=== PATIENT | male | born 1945 | race Caucasian/White ===

== ENCOUNTER 2020-08-21 12:32 | Emergency (ER) | payer OTHER, SELFPAY ==
[2020-08-21] VITALS (9 sets, daily range): BP systolic 126–138; BP diastolic 72–85; PULSE 56–78; RESP 16–20; TEMP 36.8; O2SAT 87–97; BMI 29.8
--- NOTE | 2020-08-21 12:43 | XR_ITS ---
WS: [id number] Portable AP upright chest, 08/21/2020 Clinical Data: dyspnea/cough Comparison: None. Findings: No nodules, masses or effusions are seen. The heart is normal. The pulmonary vascularity is not increased. No pneumonia or pneumothorax is seen. The aortic arch and descending aorta show tortu osity. XR/XR chest 1V portable [id number] Impression: Atherosclerosis.
--- NOTE | 2020-08-21 12:57 | ECG_ITS ---
[facility] Test Date: 2020-08-21 Pat Name: Christian Watson Department: Room: Gender: Male Inker: : 1945 Requested By: Dmitri Freedman Order Number: [id number] Juan Ramon MD: Ej Morrison M.D. Measurements Intervals [place] Rate: 68 P: 53 [place]: 143 QRS: 72 QRSD: 102 T: 68 QT: 411 QTc: 440 Interpretive Statements SINUS RHYTHM MODERATE ST DEPRESSION [0.05+ mV ST DEPRESSION] Compared to ECG 08/21/2020 12:39:11 ST (T wave) deviation now present Sinus bradycardia no longer present Electronically Signed On 08-22-2020 18:45:29 CDT by Ej Morrison M.D. [id number]
--- NOTE | 2020-08-21 12:59 | ED_ITS ---
HPI - SOB/Dyspnea General: Chief Complaint: Shortness of Breath/Dyspnea Stated Complaint: SOB Time Seen by Provider: 08/21/20 12:34 History of Present Illness: HPI Narrative: 75 yo male presents emergency room with increasing shortness of breath of the last couple of days. Began approximately 4 days ago he has slight increase in volume of cough dry throat some sinus congestion is a history of COPD. He has not had any fever. He has previously been vaccinated for Covid he never had an actual case of Covid that he is aware of. MD elicited complaint: shortness of breath and cough Pertinent past history: COPD Onset (ago): day(s) (4) Timing: intermittent Severity: moderate Exacerbating factors: exertion and coughing Relieving factors: rest and bronchodilators Known history of: COPD Associated symptoms: Reports chest congestion and cough; Deny abdominal pain, chest pain, diaphoresis, dizziness, extremity pain, fever(s), hemoptysis, lightheadedness, myalgias, nausea, orthopnea, palpitations, paresthesias, polydipsia, polyuria, rash, syncope or vomiting Treatment prior to arrival: bronchodilator Review of Systems Const: Denies: fever(s) or diaphoresis ENMT: Denies: throat pain, ear or mastoid pain, nasal discharge or nasal congestion Card: Denies: chest pain, palpitations, lightheadedness, syncope or orthopnea Resp: Reports: chest congestion; Denies: hemoptysis GI: Denies: abdominal pain, nausea or vomiting : Denies: flank pain, dysuria, urinary frequency or urinary urgency Musc: Denies: extremity pain Skin/Breast: Denies: rash or pruritus Neuro: Denies: dizziness Endo: Denies: polyuria or polydipsia PFS ED PFSH: Medical History (Updated 08/21/20 @ 15:40 by Dmitri Saldana DO) COPD (chronic obstructive pulmonary disease) Physical Exam Const: COMMON NORMALS: no acute distress GENERAL APPEARANCE: cooperative and comfortable ORIENTATION/CONSCIOUSNESS: Yes awake, Yes oriented to person, Yes oriented to place and Yes oriented to time HENMT: COMMON NORMALS: normocephalic, atraumatic and hearing grossly normal bilaterally HEAD & SCALP: normocephalic and atraumatic Neck/C-Spine: COMMON NORMALS: no JVD Resp: AUSCULTATION: wheezes Cardio: COMMON NORMALS: no JVD, regular rate, regular rhythm and No murmurs present (Cardio) RATE: regular rate RHYTHM: regular rhythm GI: COMMON NORMALS: Soft to palpation and No hepatosplenomegaly present AUSCULTATION: Yes normoactive bowel sounds PALPATION: Yes Soft to palpation, No Tenderness to palpation present (GI), No Guarding due to palpation present (GI) and Yes No hepatosplenomegaly present Extremity: COMMON NORMALS: normal to inspection, capillary refill normal, no clubbing, cyanosis or edema, no calf tenderness and no pedal edema Neuro: SENSORIUM/ORIENTATION: Yes oriented to person, Yes oriented to place and Yes oriented to time Skin: COMMON NORMALS: no rashes or lesions noted GENERAL SKIN EXAM: no rashes or lesions noted Course Vital Signs: Vital signs: Vital Signs Temperature 98.2 F 08/21/20 12:41 Pulse Rate 78 08/21/20 15:24 Respiratory Rate 16 08/21/20 15:24 Blood Pressure 138/82 08/21/20 16:00 Pulse Oximetry 96 08/21/20 16:00 MDM - SOB/Dyspnea MDM Narrative: Medical decision making narrative: Patient now requiring oxygen with ambulation. Chest x-ray is unremarkable white count is normal were going to discharge him home on Spiriva continue albuterol as needed follow-up with his primary care doctor within the next week and will start him oxygen at 2 L/min continuously Case management is [facility] to get [facility] through. Lab Data: Labs: Lab Results 08/21/20 08/21/20 08/21/20 Range/Units 13:00 13:00 13:00 WBC 5.5 (4.0-10.0) 10^3/ uL RBC 5.08 (4.1-5.3) 10^6/u L Hgb 15.9 (11.7-16.6) g/dL Hct 47.2 (42.0-52.0) % MCV 92.9 (80-94) fL MCH 31.3 (28.0-34.0) pg MCHC 33.7 (30.0-36.0) g/dL RDW 11.9 L (12.1-15.1) % Plt Count 207 (130-400) 10^3/c mm MPV 9.5 (7.4-10.4) fL Neut % (Auto) 53.4 % Lymph % (Auto) 31.1 % Ripley % (Auto) 12.8 % Eos % (Auto) 2.0 % Baso % (Auto) 0.5 % Neut # (Auto) 2.92 (1.8-7.7) 10^3/u L Lymph # (Auto) 1.7 (0.8-4.8) 10^3/u L Ripley # (Auto) 0.7 (0.2-0.9) 10^3/u L Eos # (Auto) 0.1 (0.0-0.8) 10^3/u L Baso # (Auto) 0.0 (0.0-0.1) 10^3/u L Nucleated RBC % (a uto) 0 % Nucleated RBCs # 0.0 /100WBC Specimen Type Arterial Sample Site Radial, right ABG pH 7.44 (7.35-7.45) ABG pCO2 37.6 (35-45) mmHg ABG pO2 62.0 L (80.0-100.0) mmH g ABG HCO3 25.7 (22-26) mmol/L ABG O2 Saturation 92.3 ABG Base Excess 1.7 (-2.0-2.0) mmol/ L [place]ano Test Pos A-a O2 Gradient 5.3 (5-10) mmHg Hematocrit 49.3 (42-52) % Hgb O2 Saturation 91.5 L (95-100) % Carboxyhemoglobin 0.2 L (0.4-20.1) %THgb Methemoglobin 0.6 (0.4-1.5) % Total Hemoglobin 16.1 (14-18) g/dL Sodium 141.0 138 (131-143) mmol/L Potassium 4.3 4.2 (3.5-5.0) mmol/L Glucose 107.0 96 (70-115) mg/dL Ionized Calcium 1.2 (1.1-1.4) mmol/L O2 Delivery Device Room air FiO2 21.0 % Denture Laboratory Technician ID Monro Chloride 101 (98-107) mmol/L Carbon Dioxide 28 (22-29) mmol/L Anion Gap 13.2 (5-19) BUN 11 (8-23) mg/dL Creatinine 0.9 (0.7-1.2) mg/dL GFR Calculation Not Reportable Calculated Osmolal ity 285 (285-295) mOsm/k g Calcium 9.4 (8.5-10.5) mg/dL Troponin T Baselin e (0-15) ng/L Troponin T 120 Min poarch (0-15) ng/L Delta Troponin T (0-10) ABS# Urine Color (Yellow) Urine Appearance (CLEAR) Urine pH (5-7) Ur Specific Gravit y (1.005-1.030) Urine Protein (Negative) Urine Glucose (UA) (Normal) Urine Ketones (Negative) Urine Blood (Negative) Urine Nitrate (Negative) Urine Bilirubin (Negative) Urine Urobilinogen (Negative) mg/dL Ur Leukocyte [place] a[place] (Negative) 08/21/20 08/21/20 08/21/20 Range/Units 13:00 13:29 15:09 WBC (4.0-10.0) 10^3/ uL RBC (4.1-5.3) 10^6/u L Hgb (11.7-16.6) g/dL Hct (42.0-52.0) % MCV (80-94) fL MCH (28.0-34.0) pg MCHC (30.0-36.0) g/dL RDW (12.1-15.1) % Plt Count (130-400) 10^3/c mm MPV (7.4-10.4) fL Neut % (Auto) % Lymph % (Auto) % Ripley % (Auto) % Eos % (Auto) % Baso % (Auto) % Neut # (Auto) (1.8-7.7) 10^3/u L Lymph # (Auto) (0.8-4.8) 10^3/u L Ripley # (Auto) (0.2-0.9) 10^3/u L Eos # (Auto) (0.0-0.8) 10^3/u L Baso # (Auto) (0.0-0.1) 10^3/u L Nucleated RBC % (a uto) % Nucleated RBCs # /100WBC Specimen Type Sample Site ABG pH (7.35-7.45) ABG pCO2 (35-45) mmHg ABG pO2 (80.0-100.0) mmH g ABG HCO3 (22-26) mmol/L ABG O2 Saturation ABG Base Excess (-2.0-2.0) mmol/ L [place]ano Test A-a O2 Gradient (5-10) mmHg Hematocrit (42-52) % Hgb O2 Saturation (95-100) % Carboxyhemoglobin (0.4-20.1) %THgb Methemoglobin (0.4-1.5) % Total Hemoglobin (14-18) g/dL Sodium (131-143) mmol/L Potassium (3.5-5.0) mmol/L Glucose (70-115) mg/dL Ionized Calcium (1.1-1.4) mmol/L O2 Delivery Device FiO2 % Denture Laboratory Technician ID Chloride (98-107) mmol/L Carbon Dioxide (22-29) mmol/L Anion Gap (5-19) BUN (8-23) mg/dL Creatinine (0.7-1.2) mg/dL GFR Calculation Calculated Osmolal ity (285-295) mOsm/k g Calcium (8.5-10.5) mg/dL Troponin T Baselin e 9 (0-15) ng/L Troponin T 120 Min poarch 7.26 (0-15) ng/L Delta Troponin T -1.74 L (0-10) ABS# Urine Color Straw (Yellow) Urine Appearance Clear (CLEAR) Urine pH 6.5 (5-7) Ur Specific Gravit y 1.010 (1.005-1.030) Urine Protein Neg (Negative) Urine Glucose (UA) Norm (Normal) Urine Ketones Negative (Negative) Urine Blood Neg (Negative) Urine Nitrate Negative (Negative) Urine Bilirubin Neg (Negative) Urine Urobilinogen Norm (Negative) mg/dL Ur Leukocyte [place] Negative (Negative) Discharge Plan Discharge Patient Disposition: Home Clinical Impression: COPD (chronic obstructive pulmonary disease) Condition: Stable Prescriptions: New Spiriva Respimat 1.25 mcg/actuation mist 2 inh inhalation DAILY Qty: 4 RF: 0 No Action pravastatin 40 mg Tablet 40 mg PO QPM RF: 0 Aspir-81 81 mg Tablet,Delayed Release (Dr/Ec) 81 mg PO QAM RF: 0 Protonix 20 mg Tablet,Delayed Release (Dr/Ec) 20 mg PO QAM RF: 0 hydrochlorothiazide 25 mg Tablet 12.5 mg PO QAM RF: 0 Flonase 50 mcg/actuation [place],Suspension 2 spray INTRANASAL BEDTIME RF: 0 metoprolol tartrate 25 mg Tablet 12.5 mg PO BID RF: 0 Vitamin D3 50 mcg (2,000 unit) Tablet 50 mcg PO QAM RF: 0 Spiriva Respimat 2.5 mcg/actuation Mist 2 puff INHALATION QAM RF: 0 Discharge Orders: Discharge ED (Routine); Ordered 08/21/20 Ordered By: Dmitri Saldana Other Ambulatory Orders: DME: Oxygen (Order) Location: None Selected Ordered By: Dmitri Saldana Patient Instructions: Opioid Safety Activity Restrictions/Additional Instructions: Follow up with your PCP within the next week. Coding Level of Care Code ED Coat Check Attendant for Chas Fwd Exam Comprehensive
[2020-08-21] MEDS: ipratropium-albuterol 3 mL Neb INHALATION (13:10)
[2020-08-21 13:14] LABS: ABG PCO2 37.6 mmHg (35-45); ABG PH Result 7.44 (7.35-7.45); Alveolar-Arterial Oxygen Gradi 5.3 mmHg (5-10); Arterial Blood Gas Hematocrit 49.3 % (42-52); Base Excess ABG 1.7 mmol/L (-2.0-2.0); Basophils % 0.5 %; Blood Gas Allen Test Pos; Blood Gas Operator Identificat MONRO; Blood Gas Sample Site Radial, right; Blood Gas Sample Type Arterial; Carboxyhemoglobin 0.2 %THgb (0.4-20.1); Eosinophils # 0.1 10^3/uL (0.0-0.8); HCO3 ABG 25.7 mmol/L (22-26); HGB O2 Sat 91.5 % (95-100); Hematocrit 47.2 % (42.0-52.0); Hemoglobin 15.9 g/dL (11.7-16.6); Ionized Calcium Level - ABG 1.2 mmol/L (1.1-1.4); Lymphocytes # 1.7 10^3/uL (0.8-4.8); Lymphocytes % 31.1 %; Mean Corpuscular HGB Conc 33.7 g/dL (30.0-36.0); Mean Corpuscular Hemoglobin 31.3 pg (28.0-34.0); Mean Corpuscular Volume 92.9 fL (80-94); Mean Platelet Volume 9.5 fL (7.4-10.4); Methemoglobin 0.6 % (0.4-1.5); Monocytes # 0.7 10^3/uL (0.2-0.9); Monocytes % 12.8 %; Neutrophils # 2.92 10^3/uL (1.8-7.7); Neutrophils % 53.4 %; Nucleated Red Blood Cells % 0 %; Oxygen Device ROOM AIR; Oxygen Saturation ABG 92.3; Platelet Count 207 10^3/cmm (130-400); Potassium Level - ABG 4.3 mmol/L (3.5-5.0); Red Blood Count 5.08 10^6/uL (4.1-5.3); Red Cell Distribution Width 11.9 % (12.1-15.1); Total Hemoglobin 16.1 g/dL (14-18); White Blood Count 5.5 10^3/uL (4.0-10.0)
[2020-08-21 13:30] LABS: Troponin(5th) Baseline 9 ng/L (0-15)
[2020-08-21 13:31] LABS: Blood Urea Nitrogen 11 mg/dL (8-23); Calcium 9.4 mg/dL (8.5-10.5); Carbon Dioxide 28 mmol/L (22-29); Chloride 101 mmol/L (98-107); Glucose 96 mg/dL (65-115); Osmolality Calculated 285 mOsm/kg (285-295); Sodium 138 mmol/L (136-145)
[2020-08-21 13:39] LABS: Add Urine Microscopic? NO; Charge for UA Resulting for Rev
[2020-08-21 13:47] LABS: Urine Appearance Clear (CLEAR); Urine Color Straw (Yellow)
[2020-08-21 13:48] LABS: Bilirubin Urine Neg (Negative); Blood Urine Neg (Negative); Glucose Urine UA Norm (Normal); Ketones Urine Negative (Negative); Leukocyte Esterase Urine Negative (Negative); Nitrate Urine Negative (Negative); Protein Urine Neg (Negative); Urobilinogen Urine Norm (Negative); pH Urine 6.5 (5-7)
[2020-08-21 13:58] LABS: Anion Gap 13.2 (5-19); Potassium 4.2 mmol/L (3.5-5.1)
--- NOTE | 2020-08-21 14:57 | ECG_ITS ---
[facility] Test Date: 2020-08-21 Pat Name: Christian Watson Department: Room: Gender: Male Associate Professor Of Pathology: : 1945 Requested By: Dmitri Freedman Order Number: [id number] Juan Ramon MD: Ej Morrison M.D. Measurements Intervals [place] Rate: 57 P: 12 [place]: 162 QRS: -11 QRSD: 105 T: 44 QT: 426 QTc: 417 Interpretive Statements SINUS BRADYCARDIA No previous ECG available for comparison Electronically Signed On 08-22-2020 19:01:49 CDT by Ej Morrison M.D. [id number]
--- NOTE | 2020-08-21 15:46 | DCPLANNER ---
java manager was asked to help arrange home oxygen for patient, he has [facility]. java manager contacted Bill Alston with [facility], sent him patients information over secure email.
[2020-08-21 15:57] LABS: Troponin 5 2HR 7.26 ng/L (0-15)
[2020-08-21 15:59] LABS: Troponin 5 2HR Delta -1.74 ABS# (0-10)
== END 2020-08-21 19:08 | disposition home or self-care (01) ==
PROVIDERS: Emergency Provider Family Medicine
DX: J44.9 Chronic obstructive pulmonary disease, unspecified (principal); Z79.82 Long term (current) use of aspirin
CPT/HCPCS: 36600; 71045; 80048; 80051; 81003; 82330; 82805; 84484; 85025; 93005; 94640; 96374; 99284; J2930

== ENCOUNTER → 2020-10-31 10:43 | Outpatient (BNVA) | payer OTHER, SELFPAY | PROVIDERS: Referring Provider Family Medicine; Visit Provider Podiatrist Foot & Ankle Surgery | DX: M79.673 Pain in unspecified foot (principal) | CPT/HCPCS: 73630 ==

== ENCOUNTER 2020-12-06 12:06 | Outpatient (CLI) | payer OTHER, MEDICARE, SELFPAY ==
--- NOTE | 2020-12-06 12:11 | US_ITS ---
WS: [id number] ULTRASOUND SOFT TISSUES RIGHT foot HISTORY: Evaluate for Montgomery's neuroma right foot COMPARISON: None available. TECHNIQUE: 2-D and color Doppler imaging is submitted. No change in echogenicity or hypoechoic nodule between the metatarsal heads. No mass identified. No f luid at the joint spaces. US/US soft tissue/extremity [id number] IMPRESSION: Negative ultrasound RIGHT foot. No Montgomery's neuroma identified.
== END 2020-12-06 12:07 | disposition home or self-care (01) ==
PROVIDERS: PCP Family Medicine; Visit Provider Podiatrist Foot & Ankle Surgery
DX: M77.41 Metatarsalgia, right foot (principal)
CPT/HCPCS: 76882

== ENCOUNTER 2021-07-03 06:13 | Day surgery (SDC) | payer OTHER, SELFPAY ==
[2021-07-01 09:02] VITALS: BMI 29.8
[2021-07-03 06:33] VITALS: BP 141/94; PULSE 97; RESP 18; TEMP 36.4; O2SAT 94
[2021-07-03] MEDS: sodium chloride 0.9% 1,000 ML 30 ML IV (06:39)
--- NOTE | 2021-07-03 06:47 | P.HP_ITS ---
Same Day Surgery H&P Indication for Procedure/HPI DATE OF PROCEDURE: July 03, 2021 CHIEF COMPLAINT/INDICATIONFOR SURGICAL PROCEDURE: History of colon polyps PREOP DIAGNOSIS: History of colon polyps PLANNED PROCEDURE: Operation Date: 07/03/21 07:30 Proposed Procedures p Colonoscopy 36578(Not Applicable) - Andrew Mejia MD 04/21/2021 This is a pleasant 75 years old gentleman comes today escorted by his and he reports that he had a colonoscopy back in 2009 that was within normal limits.? He had about 20 years ago he had a colonoscopy that showed polyps.? Patient denies bleeding per rectum or history of colon cancer and he is referred to my practice for repeat colonoscopy. 07/03/2021 Patient comes today for surveillance colonoscopy ROS All systems have been reviewed negative except as per the above or per problem list Medications/Allergies* Home Medications Medication Instructions Recorded Confirmed Type aspirin 81 mg tablet,delayed 81 mg PO QAM 08/21/20 07/01/21 History release cholecalciferol (vitamin D3) 50 50 mcg PO QAM 08/21/20 07/03/21 History mcg (2,000 unit) tablet (Vitamin D3) fluticasone propionate 50 2 spray INTRANASAL BEDTIME 08/21/20 07/03/21 History mcg/actuation nasal spray,suspension hydrochlorothiazide 25 mg tablet 12.5 mg PO QAM 08/21/20 07/03/21 History metoprolol tartrate 25 mg tablet 12.5 mg PO DAILY 08/21/20 07/03/21 History pantoprazole 20 mg tablet,delayed 20 mg PO QAM 08/21/20 07/03/21 History release (Protonix) pravastatin 40 mg tablet 40 mg PO QPM 08/21/20 07/03/21 History tiotropium bromide 2.5 2 puff INHALATION QAM 08/21/20 07/03/21 History mcg/actuation mist for inhalation (Spiriva Respimat) Allergies/Adverse Reactions Allergy/AdvReac Type Severity Reaction Status Date / Time ibuprofen Allergy LESTERY-Nikie Verified 07/03/21 06:48 r Current Medications: Generic Name Dose Route Start Last Admin Trade Name Freq PRN Reason Stop Dose Admin Sodium Chloride 1,000 mls @ 30 mls/hr 07/03/21 06:30 07/03/21 06:39 Sodium Chloride 0.9% IV 07/04/21 06:29 30 mls/hr .Q24H PRASHANT Administration Pertinent History/Comorbid Conditions* Medical History (Updated 10/31/20 @ 14:10 by Aj Colbert DPM) COPD (chronic obstructive pulmonary disease) Surgical History (Updated 04/21/21 @ 15:51 by Adnrew Mejia MD) History of colonoscopy with polypectomy 2009 Social History Smoking and tobacco status: never smoked History of recent travel: No Pertinent Exam Findings alert, oriented x 3, regular rate & rhythm and procedure specific exam findings (Abdominal examination nontender nondistended soft) Recommendations Surgery/Procedure today (Surveillance colonoscopy) Coding Level of Care Code Acute Customer Advocacy Manager for Chas Sunshine
--- NOTE | 2021-07-03 07:01 | ANES.PREANE2 ---
Pre-Anesthetic Assessment Height/Weight: Height 1.83 m Weight 99.79 kg Temp Pulse Resp BP Pulse Ox 97.5 F L 97 18 141/94 94 07/03/21 06:33 07/03/21 06:33 07/03/21 06:33 07/03/21 06:33 07/03/21 06:33 Preop Diagnosis: History of colon polyps Operation Date: 07/03/21 07:30 Proposed Procedures p Colonoscopy [id number](Not Applicable) - Andrew Mejia MD Familial anesthetic complications: none Was Beta Cristina taken within 24 hours: Yes Was Clonidine taken within 24 hours: N/A Last intake: Intake Last Liquid Date 07/02/21 Last Liquid Time 22:30 Last Solid Date 07/01/21 Last Solid Time 18:00 Last Intake: 22:30 Social No alcohol and No tobacco Exam alert, oriented x 3, clear to auscultation bilaterally and regular rate & rhythm Airway Submandibular: within normal limits Cervical ROM: within normal limits Mallampati: Class II Dentition: false Pulmonary Chronic Obstructive Pulmonary Disease, Exertional Dyspnea and Shortness of Breath CV/HEM Hypertension and Murmur (leaky valve) None reported Hepatic None reported GI Gastroesophageal Reflux Disease Metabolic Diabetes Mellitus (diet controlled) Musc/skel Lower Back Pain Neuropsych None reported Anesthetic Plan ASA status: 2 Anesthesia: MAC Risk of > 500 ml blood loss (7ml/kg in children): No Medications/Allergies Home Medications Medication Instructions Recorded Confirmed Last Taken Type aspirin 81 mg tablet,delayed 81 mg PO QAM 08/21/20 07/01/21 07/02/21 History release cholecalciferol (vitamin D3) 50 50 mcg PO QAM 08/21/20 07/03/21 07/02/21 History mcg (2,000 unit) tablet (Vitamin D3) fluticasone propionate 50 2 spray INTRANASAL BEDTIME 08/21/20 07/03/21 07/02/21 History mcg/actuation nasal spray,suspension hydrochlorothiazide 25 mg tablet 12.5 mg PO QAM 08/21/20 07/03/21 07/02/21 History metoprolol tartrate 25 mg tablet 12.5 mg PO DAILY 08/21/20 07/03/21 07/02/21 History pantoprazole 20 mg tablet,delayed 20 mg PO QAM 08/21/20 07/03/21 07/02/21 History release (Protonix) pravastatin 40 mg tablet 40 mg PO QPM 08/21/20 07/03/21 07/02/21 History tiotropium bromide 1.25 2 inh INHALATION DAILY #4 g 08/21/20 07/03/21 07/02/21 Rx mcg/actuation mist for inhalation (Spiriva Respimat) tiotropium bromide 2.5 2 puff INHALATION QAM 08/21/20 07/03/21 07/02/21 History mcg/actuation mist for inhalation (Spiriva Respimat) Allergies Allergy/AdvReac Type Severity Reaction Status Date / Time ibuprofen Allergy ALGY-Bliste Verified 07/03/21 06:48 r Current Medications Generic Name Dose Route Start Last Admin Trade Name Freq PRN Reason Stop Dose Admin Sodium Chloride 1,000 mls @ 30 mls/hr 07/03/21 06:30 07/03/21 06:39 Sodium Chloride 0.9% IV 07/04/21 06:29 30 mls/hr .Q24H PRASHANT Administration PFSH Anesthesia Medical History COPD (chronic obstructive pulmonary disease) Surgical History History of colonoscopy with polypectomy 2009 Social History Smoking and tobacco status: never smoked History of recent travel: No Data Anesthesia Cardiac Studies: No Data to Display
[2021-07-03 07:57] VITALS: BP 120/70; PULSE 68; RESP 16; TEMP 37.2; O2SAT 92
[2021-07-03 08:06] VITALS: BP 130/91; PULSE 78; RESP 18; O2SAT 91
--- NOTE | 2021-07-03 13:13 | ANE.PACU2 ---
Inpatient post-anesthesia follow up: Airway intact: Yes Vital signs: Temperature 98.9 F Pulse Rate 78 Respiratory Rate 18 Blood Pressure 130/91 Pulse Oximetry 91 Oxygen Delivery Me thod Room Air Oxygen Flow Rate 3 Fraction of Inspir ed Oxygen Hydration adequate: Yes Nausea and vomiting: Yes Pain level: 2 Mental status: Baseline
== END 2021-07-03 08:24 | disposition home or self-care (01) ==
PROVIDERS: PCP Family Medicine; Visit Provider Surgery
PROC: 0DJD8ZZ Inspection of Lower Intestinal Tract, Via Natural or Artificial Opening Endoscopic (ICD-10-PCS; CPT 45378; principal; 2021-07-03 07:30)
DX: Z12.11 Encounter for screening for malignant neoplasm of colon (principal); Z86.010 Personal history of colon polyps; K63.5 Polyp of colon; K57.30 Diverticulosis of large intestine without perforation or abscess without bleeding; J44.9 Chronic obstructive pulmonary disease, unspecified; I10 Essential (primary) hypertension; K21.9 Gastro-esophageal reflux disease without esophagitis; E11.9 Type 2 diabetes mellitus without complications; Z79.82 Long term (current) use of aspirin
CPT/HCPCS: 45385; 88305; J2704; J7030

== ENCOUNTER → 2021-07-24 13:09 | Outpatient (BNVA) | payer OTHER, SELFPAY | PROVIDERS: PCP Family Medicine; Visit Provider Surgery | DX: Z09 Encounter for follow-up examination after completed treatment for conditions other than malignant neoplasm (principal); K57.31 Diverticulosis of large intestine without perforation or abscess with bleeding | CPT/HCPCS: 99213 ==

== ENCOUNTER → 2022-01-07 14:43 | Outpatient (BNVA) | payer OTHER, SELFPAY | PROVIDERS: PCP Family Medicine; Visit Provider Specialist | DX: M25.511 Pain in right shoulder (principal) | CPT/HCPCS: 73030; 99203 ==

== ENCOUNTER 2022-02-06 09:14 | Outpatient (CLI) | payer OTHER, SELFPAY ==
--- NOTE | 2022-02-06 09:30 | MR_ITS ---
WS: [id number] MRI RIGHT SHOULDER HISTORY: Chronic shoulder pain for 2 years. No injury. COMPARISON: 01/07/2022 TECHNIQUE: Multiplanar sequences of the shoulder joint are submitted. Moderate AC joint arthritis. Joint space narrowing with hypertrophic osteophytes at the distal clavic le and acromion. Osteophyte measures 5 mm extends towards the myotendinous insertion of the supraspin atus with mild mass effect. There is additional edema within the distal clavicle and increased T2 sig nal through the AC ligament. Small broad-based osteophyte along the distal undersurface of the acromi on with mild subacromial impingement. No os acromion. Normal position of the biceps tendon. Mild narrowing of the glenohumeral joint with mild diffuse loss of cartilage involving the humeral he ad and the glenoid. No effusion in the axillary recess. No significant atrophy or edema within the ro tator cuff muscles. Abnormal signal in the distal supraspinatus tendon. There is a very small amount of fluid in the distal tendon consistent with an insertion site tear. There is a additional increased T2 signal with thickening involving the bursal surface of the distal supraspinatus. There is no retr action. No full-thickness tear. No definite labral tears are identified. MR/MR shoulder RT wo con* [id number] IMPRESSION: 1. Moderate AC joint arthritis with 5 mm osteophyte encroachment upon the myot endinous insertion supraspinatus muscle. 2. Insertion site tear with intrasubstance degeneration involving the supraspi natus tendon. This is only a very small tear at the footprint. There is adjacen t tendinopathy along the bursal surface of the supraspinatus. 3. Mild loss of cartilage and joint space involving the glenoid and humeral he ad.
== END 2022-02-06 09:15 | disposition home or self-care (01) ==
LOC: RAD 09:15
PROVIDERS: PCP Family Medicine; Visit Provider Specialist
DX: M13.811 Other specified arthritis, right shoulder (principal); M75.101 Unspecified rotator cuff tear or rupture of right shoulder, not specified as traumatic; M25.511 Pain in right shoulder
CPT/HCPCS: 73221

== ENCOUNTER → 2022-02-18 13:28 | Outpatient (BNVA) | payer OTHER, SELFPAY | PROVIDERS: PCP Family Medicine; Visit Provider Specialist | DX: M25.511 Pain in right shoulder (principal) | CPT/HCPCS: 20610; 99213 ==

== ENCOUNTER → 2022-07-02 11:17 | Outpatient (BNVA) | payer OTHER, SELFPAY | PROVIDERS: PCP Family Medicine; Visit Provider Specialist | DX: M75.81 Other shoulder lesions, right shoulder (principal); Z71.89 Other specified counseling | CPT/HCPCS: 20610; J1100; J2795; J3301 ==

== ENCOUNTER → 2022-10-01 10:37 | Outpatient (BNVA) | payer OTHER, SELFPAY | PROVIDERS: PCP Family Medicine; Visit Provider Specialist | DX: M75.81 Other shoulder lesions, right shoulder (principal); M75.111 Incomplete rotator cuff tear or rupture of right shoulder, not specified as traumatic | CPT/HCPCS: 20610; J1100; J2795; J3301 ==

== ENCOUNTER 2022-12-13 09:12 | Emergency (ER) | payer OTHER, SELFPAY ==
[2022-12-13 09:16] VITALS: BP 151/82; PULSE 58; RESP 15; TEMP 36.4; O2SAT 98; BMI 29.1
[2022-12-13 09:28] VITALS: BP 151/82; PULSE 86; RESP 16; O2SAT 95
--- NOTE | 2022-12-13 09:31 | ED_ITS ---
HPI - Skin/Abscess/Foreign Bdy General: Chief complaint: Skin/Abscess/Foreign Body Stated complaint: burn on both legs Time Seen by Provider: 12/13/22 09:15 Source: patient History of Present Illness: 77-year-old male was using a cleaning product yesterday he got so on his knees use kneeling down and the chemical soaked into his knees bilaterally began washing it off and then went to the house to take his clothing off and wash it out further uncomfortable and painful today. Has dry eschar in place burn is worse on the right knee than the left. He is not sure of his last tetanus shot Onset (ago): day(s) (1) Tetanus up to date: yes Location: LLE and RLE Severity: moderate Quality: sharp Pain Consistency: intermittent Relieving factors: none Exacerbating factors: none Associated symptoms: Deny chills or fever(s) Review of Systems Const: Denies: fever(s) or chills PFSH ED PFSH: Medical History Colon polyp COPD (chronic obstructive pulmonary disease) History of carotid body tumor removal Surgical History History of colonoscopy with polypectomy 2010 History of hemorrhoidectomy Social History Smoking and tobacco status: former smoker Physical Exam Const: COMMON NORMALS: no acute distress GENERAL APPEARANCE: cooperative and comfortable ORIENTATION/CONSCIOUSNESS: Yes awake Skin: OTHER: Localized irritation bilaterally at the knees he has a second-degree burn across the patella and the inferior side of the patella on the right knee much less involvement on the left but still some areas consistent with where the patient described use kneeling down got the chemical on his jeans. No proximal lymphangitic spread no active bleeding or sign of infection at this time Course Vital Signs: Vital signs: Vital Signs Temperature 97.6 F 12/13/22 09:16 Pulse Rate 59 L 12/13/22 09:41 Respiratory Rate 16 12/13/22 09:41 Blood Pressure 140/94 12/13/22 09:41 Pulse Oximetry 94 12/13/22 09:41 Oxygen Delivery Me thod Room Air 12/13/22 09:28 MDM - Skin/Abscess/Foreign Bdy Medicial Decision Making Patient is already washed the wounds appropriately. These clark occurred yesterday there is really not a lot of intervention to do at this point other than wound care apply topical antibiotic ointment 3 times daily. Wound care instructions given follow-up with primary care Tylenol for pain. Tetanus updated. No radiology studies performed this visit Discharge Plan Discharge Patient Disposition: Home Clinical Impression: Partial thickness chemical burn of left knee, Partial thickness chemical burn of right knee Condition: Stable Prescriptions: New mupirocin 2 % ointment 1 applic topical TID Qty: 50 0RF No Action pravastatin 40 mg Tablet 40 mg PO QPM pantoprazole [Protonix] 20 mg Tablet,Delayed Release (Dr/Ec) 20 mg PO QAM hydrochlorothiazide 25 mg Tablet 12.5 mg PO QAM fluticasone propionate 50 mcg/actuation [place],Suspension 2 spray INTRANASAL BEDTIME metoprolol tartrate 25 mg Tablet 12.5 mg PO DAILY cholecalciferol (vitamin D3) [Vitamin D3] 50 mcg (2,000 unit) Tablet 50 mcg PO QAM Spiriva Respimat 2.5 mcg/actuation Mist 2 puff INHALATION QAM Discharge Orders: Discharge ED (Routine); Ordered 12/13/22 Ordered By: Dmitri Saldana Referrals: Celsa Osorio MD [Primary Care Provider] - Discharge Diet: Usual diet Discharge Activity: Increase activity as tolerated Patient Instructions: Chemical Clark, Opioid Safety, Pain Management Coding Level of Care Code ED Landscaping Specialist for Chas Sunshine
[2022-12-13] MEDS: tetanus-dipt-pertussis 0.5 mL SDV IM (09:35)
[2022-12-13 09:41] VITALS: BP 140/94; PULSE 59; RESP 16; O2SAT 94
== END 2022-12-13 09:42 | disposition home or self-care (01) ==
PROVIDERS: Emergency Provider Family Medicine; PCP Family Medicine
DX: T65.891A Toxic effect of other specified substances, accidental (unintentional), initial encounter (principal); T24.421A Corrosion of unspecified degree of right knee, initial encounter; T24.422A Corrosion of unspecified degree of left knee, initial encounter; J44.9 Chronic obstructive pulmonary disease, unspecified; Z87.891 Personal history of nicotine dependence; Z23 Encounter for immunization; Y93.E9 Activity, other interior property and clothing maintenance
CPT/HCPCS: 90715; 99283

== ENCOUNTER → 2022-12-25 09:04 | Outpatient (BNVA) | payer OTHER, SELFPAY | PROVIDERS: PCP Family Medicine; Visit Provider Nurse Practitioner Family | DX: C44.329 Squamous cell carcinoma of skin of other parts of face (principal); L82.1 Other seborrheic keratosis; C44.722 Squamous cell carcinoma of skin of right lower limb, including hip; D22.5 Melanocytic nevi of trunk; L57.8 Other skin changes due to chronic exposure to nonionizing radiation; L81.4 Other melanin hyperpigmentation; T30.4 Corrosion of unspecified body region, unspecified degree; L57.0 Actinic keratosis; L82.0 Inflamed seborrheic keratosis | CPT/HCPCS: 11102; 17004; 17110; 99213 ==

== ENCOUNTER → 2023-01-06 13:13 | Outpatient (BNVA) | payer OTHER, SELFPAY | PROVIDERS: PCP Family Medicine; Visit Provider Nurse Practitioner Family | DX: T24.7 Corrosion of third degree of lower limb, except ankle and foot (principal); T55.1X1A Toxic effect of detergents, accidental (unintentional), initial encounter; Y93.G1 Activity, food preparation and clean up; L57.0 Actinic keratosis; L82.1 Other seborrheic keratosis; D22.5 Melanocytic nevi of trunk; L57.8 Other skin changes due to chronic exposure to nonionizing radiation; L81.4 Other melanin hyperpigmentation; L82.0 Inflamed seborrheic keratosis; X58.XXXA Exposure to other specified factors, initial encounter | CPT/HCPCS: 97597; 99213 ==

== ENCOUNTER → 2023-01-07 08:49 | Outpatient (BNVA) | payer OTHER, SELFPAY | PROVIDERS: PCP Family Medicine; Visit Provider Specialist | DX: M75.81 Other shoulder lesions, right shoulder; M75.111 Incomplete rotator cuff tear or rupture of right shoulder, not specified as traumatic; Z71.89 Other specified counseling | CPT/HCPCS: 20610; J1100; J2795; J3301 ==

== ENCOUNTER → 2023-01-12 08:14 | Outpatient (BNVA) | payer OTHER, SELFPAY | PROVIDERS: PCP Family Medicine; Visit Provider Dermatology | DX: C44.329 Squamous cell carcinoma of skin of other parts of face (principal) | CPT/HCPCS: 12053; 17000; 17311 ==

== ENCOUNTER → 2023-01-28 14:06 | Outpatient (BNVA) | payer OTHER, SELFPAY | PROVIDERS: PCP Family Medicine; Visit Provider Nurse Practitioner Family | DX: T24.421A Corrosion of unspecified degree of right knee, initial encounter (principal); T49.2X1A Poisoning by local astringents and local detergents, accidental (unintentional), initial encounter; L82.1 Other seborrheic keratosis; D22.5 Melanocytic nevi of trunk; L57.8 Other skin changes due to chronic exposure to nonionizing radiation | CPT/HCPCS: 99213 ==

== ENCOUNTER → 2023-03-30 10:04 | Outpatient (BNVA) | payer OTHER, SELFPAY | PROVIDERS: PCP Family Medicine; Visit Provider Nurse Practitioner Family | DX: T30.4 Corrosion of unspecified body region, unspecified degree (principal); L82.1 Other seborrheic keratosis; D22.5 Melanocytic nevi of trunk; L57.8 Other skin changes due to chronic exposure to nonionizing radiation; L81.4 Other melanin hyperpigmentation; Z85.828 Personal history of other malignant neoplasm of skin; L57.0 Actinic keratosis; D48.5 Neoplasm of uncertain behavior of skin; X58.XXXA Exposure to other specified factors, initial encounter | CPT/HCPCS: 11102; 17000; 99213 ==

== ENCOUNTER → 2023-04-15 07:52 | Outpatient (BNVA) | payer OTHER, SELFPAY | PROVIDERS: PCP Family Medicine; Visit Provider Dermatology | DX: D04.39 Carcinoma in situ of skin of other parts of face (principal) | CPT/HCPCS: 12052; 17311 ==

== ENCOUNTER → 2023-04-22 11:02 | Outpatient (BNVA) | payer OTHER, SELFPAY | PROVIDERS: PCP Family Medicine; Visit Provider Specialist | DX: M75.81 Other shoulder lesions, right shoulder; M75.111 Incomplete rotator cuff tear or rupture of right shoulder, not specified as traumatic | CPT/HCPCS: 20610; J1100; J2795; J3301 ==

== ENCOUNTER → 2023-07-20 13:05 | Outpatient (BNVA) | payer OTHER, SELFPAY | PROVIDERS: PCP Family Medicine; Visit Provider Dermatology | DX: D48.5 Neoplasm of uncertain behavior of skin (principal); L57.0 Actinic keratosis; S10.86XA Insect bite of other specified part of neck, initial encounter; X58.XXXA Exposure to other specified factors, initial encounter; L82.1 Other seborrheic keratosis; L81.4 Other melanin hyperpigmentation; Z85.828 Personal history of other malignant neoplasm of skin | CPT/HCPCS: 11102; 17000; 99213 ==

== ENCOUNTER → 2023-08-13 09:57 | Outpatient (BNVA) | payer OTHER, SELFPAY | PROVIDERS: PCP Family Medicine; Visit Provider Specialist | DX: M25.511 Pain in right shoulder (principal); Z71.89 Other specified counseling | CPT/HCPCS: 20610; J1100; J2795; J3301 ==

== ENCOUNTER → 2023-10-11 10:04 | Outpatient (BNVA) | payer OTHER, SELFPAY | PROVIDERS: PCP Family Medicine; Visit Provider Specialist | DX: M75.111 Incomplete rotator cuff tear or rupture of right shoulder, not specified as traumatic (principal); M75.81 Other shoulder lesions, right shoulder; M19.011 Primary osteoarthritis, right shoulder | CPT/HCPCS: 73030; 99214 ==

== ENCOUNTER → 2023-11-10 15:06 | Outpatient (BNVA) | payer OTHER, SELFPAY | PROVIDERS: PCP Family Medicine; Visit Provider Dermatology | DX: L57.0 Actinic keratosis (principal); L81.4 Other melanin hyperpigmentation | CPT/HCPCS: 17004; 17110; 99213 ==

== ENCOUNTER 2023-11-18 08:32 | Outpatient (CLI) | payer OTHER, SELFPAY ==
--- NOTE | 2023-11-18 08:45 | MR_ITS ---
WS: [id number] MRI RIGHT SHOULDER HISTORY: right shoulder pain COMPARISON: 02/06/2022 TECHNIQUE: Multiplanar sequences of the shoulder joint are submitted. Moderate AC joint arthritis. Narrowing of the AC joint with large osteophytes encroaching towards the supraspinatus tendon. Increased soft tissue edema surrounding the capsule. Only a small amount of fl uid in the subdeltoid bursa. Mild subacromial impingement similar to the prior study by an osteophyte . No os acromion. Normal position of the biceps tendon. Mild narrowing of the glenohumeral joint. Mild loss of cartilage over the glenoid and humeral head. S mall subchondral cystic change in the posterolateral humeral head. Humeral head is very slightly high riding. Mild tendinopathy in the distal supraspinatus tendon at the level of the subacromial impingement. Sma ll insertion site tear of the supraspinatus is reidentified with interstitial extension of the tear. No increased signal along both the bursal and articular surfaces of the distal subscapularis tendon. The tendon remains partially intact. There is probably a small tear of along the articular portion of the tendon. Infraspinatus tendon is normal. No labral tears. There is edema within the coracoclavicular ligament. MR/MR shoulder RT wo con* [id number] IMPRESSION: 1. Moderate AC joint arthritis with clavicular osteophytes encroaching upon th e supraspinatus tendon. 2. Mild subacromial impingement, unchanged. 3. Insertion site tear with interstitial extension of the supraspinatus. Simil ar to the prior study from 2021. There is new tendinopathy in the supraspinatus tendon at the level of the subacromial impingement. 4. Mild edema coracoclavicular ligament. 5. New signal abnormality in the distal subscapularis tendon with mild thinnin g of the tendon. Partial, small tear along the articular surface.
== END 2023-11-18 08:33 | disposition home or self-care (01) ==
LOC: RAD 08:33
PROVIDERS: PCP Family Medicine; Visit Provider Specialist
DX: M75.101 Unspecified rotator cuff tear or rupture of right shoulder, not specified as traumatic (principal); M75.81 Other shoulder lesions, right shoulder; M19.011 Primary osteoarthritis, right shoulder; M25.711 Osteophyte, right shoulder
CPT/HCPCS: 73221

== ENCOUNTER → 2023-11-19 10:12 | Outpatient (BNVA) | payer OTHER, SELFPAY | PROVIDERS: PCP Family Medicine; Visit Provider Specialist | DX: M75.111 Incomplete rotator cuff tear or rupture of right shoulder, not specified as traumatic (principal); M75.81 Other shoulder lesions, right shoulder; Z71.89 Other specified counseling | CPT/HCPCS: 20610; J1100; J2795; J3301 ==

== ENCOUNTER → 2024-01-13 14:48 | Outpatient (BNVA) | payer OTHER, SELFPAY | PROVIDERS: PCP Family Medicine; Referring Provider Specialist; Visit Provider Specialist | DX: M25.511 Pain in right shoulder (principal); G56.03 Carpal tunnel syndrome, bilateral upper limbs; M75.81 Other shoulder lesions, right shoulder; M75.111 Incomplete rotator cuff tear or rupture of right shoulder, not specified as traumatic | CPT/HCPCS: 95885; 95910; 99202 ==

== ENCOUNTER → 2024-01-20 11:16 | Outpatient (BNVA) | payer OTHER, SELFPAY | PROVIDERS: PCP Family Medicine; Visit Provider Nurse Practitioner Family | DX: L57.0 Actinic keratosis (principal); L82.0 Inflamed seborrheic keratosis; L82.1 Other seborrheic keratosis; L81.4 Other melanin hyperpigmentation; Z85.828 Personal history of other malignant neoplasm of skin; L57.8 Other skin changes due to chronic exposure to nonionizing radiation | CPT/HCPCS: 17004; 17110; 99213 ==

== ENCOUNTER → 2024-03-03 10:35 | Outpatient (BNVA) | payer OTHER, SELFPAY | PROVIDERS: PCP Family Medicine; Visit Provider Specialist | DX: M75.81 Other shoulder lesions, right shoulder (principal); M75.111 Incomplete rotator cuff tear or rupture of right shoulder, not specified as traumatic; Z71.89 Other specified counseling | CPT/HCPCS: 20610; J1100; J2795; J3301 ==

== ENCOUNTER → 2024-03-29 11:03 | Outpatient (BNVA) | payer OTHER, SELFPAY | PROVIDERS: PCP Family Medicine; Visit Provider Specialist | DX: M75.111 Incomplete rotator cuff tear or rupture of right shoulder, not specified as traumatic (principal); M75.81 Other shoulder lesions, right shoulder; G56.03 Carpal tunnel syndrome, bilateral upper limbs | CPT/HCPCS: 99215 ==

== ENCOUNTER 2024-05-15 11:03 | Outpatient (CLI) | payer OTHER, SELFPAY | END 2024-05-15 11:04 | disposition home or self-care (01) | LOC: SPT 11:04 | PROVIDERS: PCP Family Medicine; Visit Provider Specialist | DX: G56.01 Carpal tunnel syndrome, right upper limb (principal); Z46.89 Encounter for fitting and adjustment of other specified devices | CPT/HCPCS: 99214; L3908 ==

== ENCOUNTER 2024-06-05 09:47 | Outpatient (CLI) | payer OTHER, SELFPAY ==
[2024-06-05 11:12] LABS: Basophils % 0.5 %; Eosinophils # 0.1 10^3/uL (0.0-0.8); Eosinophils % 1.5 %; Hematocrit 45.7 % (37-53); Lymphocytes # 2.3 10^3/uL (0.8-4.8); Lymphocytes % 26.4 %; Mean Corpuscular HGB Conc 34.1 g/dL (30-55); Mean Corpuscular Volume 93.8 fl (82-101); Mean Platelet Volume 9.7 fL (7.4-10.4); Monocytes # 1.1 10^3/uL (0.2-0.9); Monocytes % 12.1 %; Neutrophils # 5.26 10^3/uL (1.8-7.7); Neutrophils % 59.2 %; Nucleated Red Blood Cells % 0 %; Platelet Count 257 10^3/cmm (157-399); Red Blood Count 4.87 10^6/uL (3.85-5.65); Red Cell Distribution Width 12.2 % (12.1-15.1); White Blood Count 8.87 10^3/uL (3.29-11.43)
[2024-06-05 11:14] LABS: Bilirubin Urine Negative (Negative); Blood Urine Negative (Negative); Glucose Urine UA Negative (Normal); Ketones Urine Negative (Negative); Leukocyte Esterase Urine Negative (Negative); Nitrate Urine Negative (Negative); Protein Urine Negative (Negative); Urine Appearance Clear (CLEAR); Urine Color Yellow (Yellow)
[2024-06-05 11:20] LABS: Add Urine Microscopic? YES; Bacteria Urine None Seen /hpf; Hyaline Casts Urine 0-4 /lpf; RBC Urine 0-2 /hpf (0-2); Squamous Epithelial Cell Urine 0-5 /hpf (0-5); WBC Urine 0-5 /hpf (0-5)
[2024-06-05 11:32] LABS: Alanine Aminotransferase 17 U/L (0-41); Albumin Level 4.2 g/dL (3.5-5.2); Alkaline Phosphatase 88 U/L (40-130); Anion Gap 14.4 (5-19); Aspartate Amino Transferase 18 U/L (0-40); Blood Urea Nitrogen 9 mg/dL (8-23); Calcium 9.7 mg/dL (8.5-10.5); Carbon Dioxide 27 mmol/L (22-29); Chloride 101 mmol/L (98-107); Globulin 4.1 g/dL (1.3-4.6); Glucose 111 mg/dL (65-115); Osmolality Calculated 285 mOsm/kg (285-295); Potassium 4.4 mmol/L (3.5-5.1); Sodium 138 mmol/L (136-145); Total Bilirubin 0.6 mg/dL (0.15-1.2); Total Protein 8.3 g/dL (6.6-8.7)
== END 2024-06-05 09:48 | disposition home or self-care (01) ==
PROVIDERS: PCP Family Medicine; Visit Provider Specialist
DX: Z01.818 Encounter for other preprocedural examination (principal)
CPT/HCPCS: 36415; 80053; 81001; 85025

== ENCOUNTER → 2024-06-07 07:43 | Outpatient (BNVA) | payer OTHER, SELFPAY | PROVIDERS: PCP Family Medicine; Visit Provider Nurse Practitioner | DX: M75.81 Other shoulder lesions, right shoulder (principal); M75.111 Incomplete rotator cuff tear or rupture of right shoulder, not specified as traumatic; Z71.89 Other specified counseling; Z01.818 Encounter for other preprocedural examination | CPT/HCPCS: 20610; 93005; 99213; J1100; J2795; J3301; J9999 ==

== ENCOUNTER 2024-06-13 08:31 | Day surgery (SDC) | payer OTHER, SELFPAY ==
[2024-06-13] VITALS (10 sets, daily range): BP systolic 113–144; BP diastolic 76–118; PULSE 61–74; RESP 10–18; TEMP 36.1–36.6; O2SAT 91–98; BMI 30.2
[2024-06-13 08:55] LABS: Glucose Point of Care 105 mg/dL (70-110)
[2024-06-13] MEDS: acetaminophen 1,000 MG/100 ML PIGGYBACK 400 MG IV (08:59)
[2024-06-13] MEDS: sodium chloride 0.9% 1,000 ML 30 ML IV (08:59)
[2024-06-13] MEDS: gabapentin 300 mg Capsule PO (09:04)
--- NOTE | 2024-06-13 09:18 | ANES.PREANE2 ---
Pre-Anesthetic Assessment Height/Weight: Height 6 ft Weight 223 lb Temp Pulse Resp BP Pulse Ox O2 Del Method 97.1 F L 61 17 141/118 95 Room Air 06/13/24 08:50 06/13/24 08:50 06/13/24 08:50 06/13/24 08:50 06/13/24 08:50 06/13/24 08:50 Preop Diagnosis: Right carpal tunnel syndrome Operation Date: 06/13/24 10:25 Proposed Procedures p Carpal Tunnel Release(Right) - Princess Austin MD Was Beta Cristina taken within 24 hours: Yes Was Clonidine taken within 24 hours: N/A Last intake: Intake Last Liquid Date 06/13/24 Last Liquid Time 00:00 Last Solid Date 06/12/24 Last Solid Time 22:00 Social No alcohol and No tobacco Exam alert, oriented x 3, clear to auscultation bilaterally and regular rate & rhythm Airway Submandibular: within normal limits Cervical ROM: within normal limits Mallampati: Class II Dentition: false Anesthetic Plan ASA status: 3 Anesthesia: General Other: No prior issues with anesthesia NPO since yesterday evening History of COPD, controlled with inhalers GERD on Protonix Hypertension on metoprolol and hydrochlorothiazide Labs reviewed and acceptable for procedure EKG showing sinus rhythm with moderate conduction delay Plan for general anesthesia with LMA Medications/Allergies Home Medications ?Medication ?Instructions ?Recorded ?Confirmed ?Last Taken ?Type cholecalciferol (vitamin D3) 50 50 mcg PO QAM 08/21/20 06/13/24 06/13/24 History mcg (2,000 unit) tablet (Vitamin D3) fluticasone propionate 50 2 spray intranasal BEDTIME 08/21/20 06/12/24 06/12/24 History mcg/actuation nasal spray,suspension hydrochlorothiazide 25 mg tablet 12.5 mg PO QAM 08/21/20 06/13/24 06/13/24 History metoprolol tartrate 25 mg tablet 12.5 mg PO DAILY 08/21/20 06/13/24 06/13/24 History pantoprazole 20 mg tablet,delayed 20 mg PO QAM 08/21/20 06/13/24 06/13/24 History release (Protonix) pravastatin 40 mg tablet 40 mg PO QPM 08/21/20 06/13/24 06/12/24 History tiotropium bromide 2.5 2 puff inhalation QAM 08/21/20 06/13/24 06/13/24 History mcg/actuation mist for inhalation (Spiriva Respimat) righht wrist cock up splinit. #1 ea 05/15/24 06/07/24 Unknown Rx Allergies Allergy/AdvReac Type Severity Reaction Status Date / Time ibuprofen Allergy ALGY-Bliste Verified 06/13/24 08:40 r lisinopril Allergy ADR-Cough Verified 06/13/24 08:40 Current Medications Generic Name Dose Route Start Last Admin Trade Name Freq PRN Reason Stop Dose Admin Sodium Chloride 1,000 mls @ 30 mls/hr 06/13/24 08:45 06/13/24 08:59 Sodium Chloride 0.9% IV 06/14/24 08:44 30 mls/hr .Q24H PRASHANT Administration PFSH Anesthesia Medical History History of carotid body tumor removal Colon polyp COPD (chronic obstructive pulmonary disease) Surgical History History of hemorrhoidectomy History of colonoscopy with polypectomy 2009 Social History Smoking and tobacco/nicotine status: never used tobacco/nicotine Data Anesthesia Cardiac Studies: No Data to Display
--- NOTE | 2024-06-13 09:59 | P.HPUD_ITS ---
Surgery/Procedure H&P Update DATE OF PROCEDURE: June 13, 2024 DATE H&P PERFORMED: 06/07/24 H&P UPDATE INFORMATION: I have reviewed H&P completed within last 30 days, I have examined patient prior to procedure, No changes to prior documentation and [place] [facility] [place] indicated PREOP DIAGNOSIS: Right carpal tunnel syndrome PLANNED PROCEDURE: Operation Date: 06/13/24 10:25 Proposed Procedures p Carpal Tunnel Release(Right) - Princess Austin MD Related Problem List Diagnoses (1) Carpal tunnel syndrome on right:
[2024-06-13] MEDS: ceFAZolin 2,000 mg SDV 2000 MG IVP (10:08)
[2024-06-13] MEDS: BUPivacaine 0.5% INJ 30 mL INJECTION (10:35)
--- NOTE | 2024-06-13 11:22 | P.OP_ITS ---
Operative Report Date of procedure: June 13, 2024 Pre-op diagnosis: Right carpal tunnel syndrome Post-op diagnosis: Right carpal tunnel syndrome Post-op findings: Severe compression across the carpal canal Procedure done: Right carpal tunnel release Implants: None Specimens removed/disposition: None Pathology: None Surgeon: Princess Austin MD [employer] Supervisor: None Anesthesia: General (Per LMA, ASA 3) Estimated blood loss (mL): 2 Tourniquet time (min): 16 (At 250 mmHg) IV fluids (mL): 600 Urine output (mL): 0 (No Sampson) Complications: None Findings: Very tight carpal canal with thickening of the transverse carpal ligament Condition: stable Disposition: PACU (Then return to same-day surgery for discharge to home) Brief History: This 79-year-old gentleman presented with complaints consistent with right carpal tunnel syndrome. This was confirmed by a nerve conduction study. After discussion in the office, the patient wished to proceed with right carpal tunnel release. Risks and complications of surgery were explained to him in the office. Consents were signed and questions were answered. He was seen preoperatively for evaluation and optimization. Plans are made for carpal tunnel release today. Procedure: The patient was brought to the operating theater. The patient had a general anesthesia per LMA, ASA 3. The tourniquet was elevated to 250 mmHg for a total tourniquet time of 16 minutes. The patient was also given Ancef 2 g preoperatively. The arm was then prepped and draped with DuraPrep in usual fa shion with the arm draped free. A surgical pause was performed. At the time, the surgical pause, we confirmed the site and side of surgery. We also confirmed the patient's identity, appropriate and timely administration of preoperative antibiotics and preoperative surgical markings. An incision was then made along the thenar crease. The incision crossed the wrist joint in a curvilinear fashion. Dissection continued through skin and soft tissues using a scalpel. The palmaris longus was identified along with the transverse carpal ligament. Each of these was released carefully to avoid injury to the median nerve. We were able to dissect gently into the carpal canal which was noted to be quite tight with significant compression across the median nerve. The nerve was visualized and was an hourglass shape with a purpleish discoloration. After release, the canal was subsequently palpated to assure there was no bony encroachment upon the canal. There was a quite thickened fibrous tissue within the canal, and this was opened longitudinally as well. The canal was then palpated distally and proximally to assure that my small finger was passed easily without impingement. Finding this to be so, attention was directed to closure. The wound was irrigated with ropivacaine plain. It was then closed with 3-0 nylon in an interrupted mattress fashion. Sterile dressing was then placed consisting of Dermabond, OpSite, fluffed fluffs, sterile soft roll, and an Сергей wrap. The tourniquet was released after 16 minutes. There were no complications. There were no specimens. The procedure was well tolerated. Plan is the patient will be discharged home. Related Problem List Diagnoses (1) Carpal tunnel syndrome on right:
--- NOTE | 2024-06-13 12:15 | ANE.PACU2 ---
Inpatient post-anesthesia follow up: Airway intact: Yes Vital signs: Temperature 97.8 F Pulse Rate 65 Respiratory Rate 18 Blood Pressure 142/90 Pulse Oximetry 94 Oxygen Delivery Me thod Room Air Oxygen Flow Rate 8 Fraction of Inspir ed Oxygen Hydration adequate: Yes Nausea and vomiting: No Pain level: 1 Mental status: Baseline
== END 2024-06-13 12:15 | disposition home or self-care (01) ==
PROVIDERS: PCP Family Medicine; Visit Provider Specialist
PROC: (CPT 64721; principal; 2024-06-13 10:25)
DX: G56.01 Carpal tunnel syndrome, right upper limb (principal); J44.9 Chronic obstructive pulmonary disease, unspecified; K21.9 Gastro-esophageal reflux disease without esophagitis; I10 Essential (primary) hypertension
CPT/HCPCS: 64721; 36416; 82962; J0131; J0690; J1100; J2371; J2405; J2704; J3010; J3490; J7030; J9999

== ENCOUNTER → 2024-06-26 14:33 | Outpatient (BNVA) | payer OTHER, SELFPAY | PROVIDERS: PCP Family Medicine; Visit Provider Specialist | DX: G56.01 Carpal tunnel syndrome, right upper limb (principal) | CPT/HCPCS: 99024 ==

== ENCOUNTER → 2024-08-03 08:26 | Outpatient (BNVA) | payer OTHER, SELFPAY | PROVIDERS: PCP Family Medicine; Visit Provider Nurse Practitioner Family | DX: L57.8 Other skin changes due to chronic exposure to nonionizing radiation (principal); L81.4 Other melanin hyperpigmentation; L82.1 Other seborrheic keratosis; T88.7XXA Unspecified adverse effect of drug or medicament, initial encounter; X58.XXXA Exposure to other specified factors, initial encounter | CPT/HCPCS: 11102; 17004; 99214 ==

== ENCOUNTER → 2024-08-09 14:29 | Outpatient (BNVA) | payer OTHER, SELFPAY | PROVIDERS: PCP Family Medicine; Visit Provider Dermatology | DX: C85.80 Other specified types of non-Hodgkin lymphoma, unspecified site (principal); Z08 Encounter for follow-up examination after completed treatment for malignant neoplasm; Z85.828 Personal history of other malignant neoplasm of skin; L73.8 Other specified follicular disorders; L57.8 Other skin changes due to chronic exposure to nonionizing radiation; L81.4 Other melanin hyperpigmentation; L73.9 Follicular disorder, unspecified; L82.1 Other seborrheic keratosis; L81.0 Postinflammatory hyperpigmentation; L60.3 Nail dystrophy; L57.0 Actinic keratosis | CPT/HCPCS: 17000; 99214 ==

== ENCOUNTER → 2024-09-08 10:55 | Outpatient (BNVA) | payer OTHER, SELFPAY | PROVIDERS: PCP Family Medicine; Visit Provider Specialist | DX: M75.81 Other shoulder lesions, right shoulder (principal); M75.111 Incomplete rotator cuff tear or rupture of right shoulder, not specified as traumatic | CPT/HCPCS: 20610; J1100; J2795; J3301; J9999 ==

== ENCOUNTER 2024-09-15 10:30 | Oncology outpatient (recurring) (ONCR) | payer OTHER, SELFPAY ==
[2024-09-11 11:28] LABS: Basophils % 0.4 %; Eosinophils # 0.1 10^3/uL (0.0-0.8); Eosinophils % 0.6 %; Hematocrit 45.8 % (37-53); Lymphocytes % 20.2 %; Mean Corpuscular HGB Conc 34.3 g/dL (30-55); Mean Corpuscular Hemoglobin 32.2 pg (27-33); Mean Corpuscular Volume 93.9 fl (82-101); Mean Platelet Volume 9.5 fL (7.4-10.4); Monocytes # 1.2 10^3/uL (0.2-0.9); Monocytes % 12.6 %; Neutrophils # 6.37 10^3/uL (1.8-7.7); Neutrophils % 65.6 %; Nucleated Red Blood Cells % 0 %; Platelet Count 225 10^3/cmm (157-399); Red Blood Count 4.88 10^6/uL (3.85-5.65); White Blood Count 9.73 10^3/uL (3.29-11.43)
[2024-09-11 11:33] LABS: Erythrocyte Sedimentation Rate 6 mm/hr (0-10)
[2024-09-11 11:47] LABS: Alanine Aminotransferase 18 U/L (0-41); Albumin Level 4.2 g/dL (3.5-5.2); Alkaline Phosphatase 79 U/L (40-130); Anion Gap 16.2 (5-19); Aspartate Amino Transferase 17 U/L (0-40); Blood Urea Nitrogen 17 mg/dL (8-23); Calcium 9.7 mg/dL (8.5-10.5); Carbon Dioxide 24 mmol/L (22-29); Chloride 103 mmol/L (98-107); Globulin 3.5 g/dL (1.3-4.6); Glucose 102 mg/dL (65-115); Lactate Dehydrogenase 141 U/L (135-225); Osmolality Calculated 290 mOsm/kg (285-295); Phosphorus 3.3 mg/dL (2.5-4.5); Potassium 4.2 mmol/L (3.5-5.1); Sodium 139 mmol/L (136-145); Total Bilirubin 0.5 mg/dL (0.15-1.2); Total Protein 7.7 g/dL (6.6-8.7); Uric Acid 7.6 mg/dL (3.4-7.0)
[2024-09-11 12:02] LABS: Immunoglobulin IGA 485 mg/dL (70-400); Immunoglobulin IGG 1452 mg/dL (700-1600); Immunoglobulin IGM 185 mg/dL (40-230)
[2024-09-12 04:45] LABS: PROTEIN, TOTAL 7.8 g/dL (6.1-8.1)
[2024-09-12 09:59] LABS: Beta-2-Microglobulin 2.15 mg/L (< OR = 2.51)
[2024-09-12 18:04] LABS: ALBUMIN 4.3 g/dL (3.8-4.8); ALPHA 1 GLOBULIN 0.3 g/dL (0.2-0.3); ALPHA 2 GLOBULIN 0.7 g/dL (0.5-0.9); BETA 1 GLOBULIN 0.5 g/dL (0.4-0.6); BETA 2 GLOBULIN 0.6 g/dL (0.2-0.5); GAMMA GLOBULIN 1.5 g/dL (0.8-1.7)
[2024-09-14 16:39] LABS: Immunofixation Serum Normal pattern.
--- NOTE | 2024-09-15 10:30 | PETR_ITS ---
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 Then, PET images were obtained. Attenuation corrected images were constructed using the CT scan. Fused images of PET and CT were reviewed. The standardized uptake values (SUV) reported below are maximum values within a region of interest, expressed in gm/ml. Exam includes the whole body. SUV normalization method: BodyWeight Radiopharmaceutical: 11.64 mCi F-18 FDG (Fluorodeoxyglucose), IV. Time of imaging post radiopharmaceutical administration: 53 minutes Injection site: rfa COMPARISON: MRI right shoulder 11/18/2023 FINDINGS: Brain: No abnormal uptake. Pharynx: No abnormal uptake. Larynx: Diffuse bilateral symmetric uptake is likely benign. Lungs, pleura and trachea: No abnormal uptake. No suspicious lung nodules. Mild dependent atelectatic opacities in the lower lobes. Severe centrilobular emphysema. No pleural effusion. Heart: No abnormal uptake. Mediastinal space: No abnormal uptake. Liver: No abnormal uptake.Maximal uptake is 4 SUV. 1 cm cyst in the segment 2. Gallbladder and biliary ducts: Unremarkable. Pancreas: Normal distribution of radiotracer. Spleen: No abnormal uptake. Adrenal glands: No abnormal uptake. No nodules. Kidneys and ureters: Normal physiologic uptake. No hydronephrosis. Stomach and bowel: Increased uptake in the colon and in a few loops of small bowel with no corresponding CT abnormality is likely benign. Mild diverticulosis of the sigmoid colon. Intraperitoneal and retroperitoneal spaces: No abnormal uptake. No ascites. Bladder: Normal physiologic uptake. Reproductive: No abnormal uptake. Mildly enlarged prostate. Vasculature: No abnormal uptake. No aortic aneurysm. Lymph nodes: No abnormal uptake. Skeleton: Small focus of intense uptake of 9.3 SUV anteromedially in the right shoulder on axial image 124. Otherwise no abnormal uptake in the visualized axial and appendicular skeleton. Soft tissues: There is diffuse intense abnormal uptake of 15.3 SUV within the right infraspinatus muscle with no abnormal enlargement. Diffusely increased uptake of the 18.3 SUV in the left medial pterygoid muscle with no abnormal enlargement. Benign muscular uptake in bilateral forearms. There are small fat containing bilateral inguinal hernias. PET/PET WB melanoma INITIAL [id number] IMPRESSION: No abnormal radiotracer uptake concerning for malignancy. Intense muscular uptake within the right infraspinatus muscle and the left medial pterygoid muscle with no abnormal enlargement is likely benign.
== END 2024-09-15 23:59 | disposition home or self-care (01) ==
LOC: ONCMED 09-20 10:13
PROVIDERS: PCP Family Medicine; Visit Provider Internal Medicine
DX: C85.19 Unspecified B-cell lymphoma, extranodal and solid organ sites (principal); C83.09 Small cell B-cell lymphoma, extranodal and solid organ sites; R93.89 Abnormal findings on diagnostic imaging of other specified body structures; R91.8 Other nonspecific abnormal finding of lung field; J43.2 Centrilobular emphysema; K76.89 Other specified diseases of liver; K57.30 Diverticulosis of large intestine without perforation or abscess without bleeding; N40.0 Benign prostatic hyperplasia without lower urinary tract symptoms; K40.20 Bilateral inguinal hernia, without obstruction or gangrene, not specified as recurrent; Z53.9 Procedure and treatment not carried out, unspecified reason
CPT/HCPCS: 78816; 80053; 82232; 82784; 83615; 84100; 84155; 84165; 84550; 85025; 85651; 86334; 99204; A9552

== ENCOUNTER → 2024-09-25 13:11 | Outpatient (BNVA) | payer OTHER, SELFPAY | PROVIDERS: PCP Family Medicine; Visit Provider Specialist | DX: G56.01 Carpal tunnel syndrome, right upper limb (principal); M19.031 Primary osteoarthritis, right wrist | CPT/HCPCS: 73110; 99213 ==

== ENCOUNTER 2024-10-13 09:00 | Oncology outpatient (recurring) (ONCR) | payer OTHER, SELFPAY ==
--- NOTE | 2024-09-20 12:19 | N.ONRAD NP_ITS ---
Radiation Oncology New Patient Visit Patient: Christian Watson MR#: [id number] : 1945 Age: 79 Sex: Male Dictated by: Pola Ibarra DO/RAGHU/MIREYA Date of Service: 09/20/2024 Referring Physician(s) : Dr. 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 PRIMARY CUTANEOUS FOLLICLE CENTER LYMPHOMA, LEFT PARIETAL SCALP, WELL HEALED, NO VISUAL DISEASE, WILL HAVE DR JACOB LOCATE DISEASE AREA BEFORE SIMULATION 09/27/2024 @ 1130, - PET/CT 09/15/2024, -F/C/NS/WT LOSS. STAGE: IAE ICD-10: C85.19 Radiotherapy to date: Summary > No prior radiation therapy. Chief Complaint / History of Present Illness: I have localized scalp lymphoma. This is a pleasant 79-year-old male who underwent shave biopsy on 08/03/[address] 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 No visible disease at this time. PET/CT on 09/15/2024 reported no disease. Patient denies any fevers, chills, night sweats, or weight loss. Patient is a prior smoker of 20 pack years quitting in 1978. Patient denies ethanol product use or illegal drug use. Patient will see Dr. Jacob in the morning of September 27 prior to her higher simulation at 11:30 AM. Current Medications: cholecalciferol (vitamin D3) (Vitamin D3) 50 mcg PO QAM fluticasone propionate 50 mcg/actuation 2 sprays intranasal BEDTIME hydrochlorothiazide 12.5 mg PO QAM metoprolol tartrate 12.5 mg PO DAILY pantoprazole (Protonix) 20 mg PO QAM pravastatin 40 mg PO QPM [righht wrist cock up splinit. As directed] tiotropium bromide 2.5 mcg/actuation (Spiriva Respimat) 2 puffs inhalation QAM Allergies: ibuprofen Allergy (Verified 09/11/24 09:40) ALGY-Blister lisinopril Allergy (Verified 09/11/24 09:40) ADR-Cough Medical History: No history of collagen vascular disease. No previous radiation therapy. History of carotid body tumor removal Colon polyp COPD (chronic obstructive pulmonary di Surgical History: History of hemorrhoidectomy History of colonoscopy with polypectomy 2009 Family History: Sister had colon cancer and a half brother had prostate cancer. Social History: Smoking and tobacco/nicotine status: never used tobacco/nicotine Current Complaints / Review of Systems: . As above Vital Signs: Performed on 09/20/2024 10:31 AM BMI - 29.539 kg/m2 (high), Height - 72 in, Weight - 217.8 lbs, Temperature - 96.8 f, Pulse - 55 /min (low), Respiration - 17 /min, O2 Sat - 96 %, Pain - 0, Fatigue - 0 and BP - 133/ 74 mm(hg). Physical Exam: Alert and oriented and answers questions appropriately. Head shows alopecia with well-healed shave biopsy site that CANNOT be determined. Lungs clear to auscultation Abdomen soft nontender with no hepatosplenomegaly. Extremities intact x 4. Performance Status: KPS 90 Pathology: Primary, c85.19 - unspecified b-cell lymphoma, extranodal and solid organ sites, Diagnosed 08/03/2024 (active) . Lab: Imaging: See HPI Impression: C85.19 - unspecified b-cell lymphoma, extranodal and solid organ sites, Diagnosed 08/03/2024 (active). PRIMARY CUTANEOUS FOLLICLE CENTER LYMPHOMA, LEFT PARIETAL SCALP, WELL HEALED, NO VISUAL DISEASE, WILL HAVE DR JACOB LOCATE DISEASE AREA BEFORE SIMULATION 09/27/2024 @ 1130, - PET/CT 09/15/2024, -F/C/NS/WT LOSS. STAGE: IAE ICD-10: C85.19 Plan: Options were discussed in detail with patient and . NCCN guidelines discussed in detail. Have Dr. 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 Signed by: 09/20/2024 12:18:51 PM <<Signature on File>> Time spent with patient/: 55 minutes CPT Code: CPT Code:
--- NOTE | 2024-10-03 12:27 | ONCRAD TMN_ITS ---
Radiation Oncology Weekly Treatment Management Patient: Christian Watson MR#: [id number] : 1945 Attending Physician: Dr. Jerzy Eastman Date of Service: 10/03/2024 Referring Physician(s) : Diagnosis: C85.19 - Unspecified b-cell lymphoma, extranodal and solid organ sites, Diagnosed 08/03/2024 (Active) Radiotherapy to date: Course: b-cell lymphoma, Treatment Site: Skull 2024, Ref. ID: [id number], Energy: 6E, Dose/Fx (cGy): 300, #Fx: 4 / 5, Dose Correction (cGy): 0, Total Dose Delivered (cGy): 1,200, Start Date: 09/28/2024, Elapsed Days: 5 Reason for visit: The patient is being seen today as part of their regularly scheduled weekly on treatment visits to assess for acute toxicities from radiotherapy. Review of Systems: No sxs. Active in garden. Vital Signs: Performed on 10/03/2024 11:32 AM BMI - 30.136 kg/m2 (high), Height - 72 in, Weight - 222.2 lbs, Temperature - 97.2 f, Pulse - 58 /min (low), Respiration - 17 /min, O2 Sat - 96 %, Pain - 0, Fatigue - 0 and BP - 158/ 87 mm(hg)(high/). Physical Exam: Small resection defect in scalp well healed. No Erythema Imaging: Radiation therapy imaging related to accurate target localization (i.e. KV, MV and CBCT) was reviewed. Appropriate changes, if any, were made to ensure treatment accuracy. Plan: Good tolerance of treatment. Will now return to derm and med onc following completion of treatment. Signed by: Dr. Jerzy Eastman 10/03/2024 12:25:25 PM
--- NOTE | 2024-10-04 16:05 | N.ONRD TS_ITS ---
Radiation Oncology Treatment Summary Patient: Christian Watson MR#: [id number] : 1945> Age: 79> Sex: Male Dictated by: Dr. Jerzy Eastman Date of Service: 10/04/2024 Referring Physician(s) : Diagnosis: C85.19 - Unspecified b-cell lymphoma, extranodal and solid organ sites, Diagnosed 08/03/2024 (Active) Radiotherapy to Date: Course: b-cell lymphoma, Treatment Site: Skull 2024, Ref. ID: [id number], Energy: 6E, Dose/Fx (cGy): 300, #Fx: 5 / 5, Dose Correction (cGy): 0, Total Dose Delivered (cGy): 1,500, Start Date: 09/28/2024, End Date: 10/04/2024, Elapsed Days: 6 Clinical Summary: The patient tolerated RT well.. He had no skin toxicity. Plan: End of treatment today. He will have ongoing follow-up with dermatology and medical oncology in the future. Signed by: Dr. Jerzy Eastman>10/04/2024 4:04:38 PM <<Signature on File>>
--- NOTE | 2024-10-13 09:00 | PETR_ITS ---
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 LABS AND CLINICAL REPORTS: Glucose: 114 mg/dl Treatment strategy for malignancy (PET staging): Restaging (PS) TECHNIQUE: Imaging protocol: Following at least four-hour fasting and following the injection of radiopharmaceutical, low dose CT images were obtained. Then, PET images were obtained. Attenuation corrected images were constructed using the CT scan. Fused images of PET and CT were reviewed. The standardized uptake values (SUV) reported below are maximum values within a region of interest, expressed in gm/ml. Exam includes the whole body. SUV normalization method: BodyWeight Radiopharmaceutical: 11.96 mCi F-18 FDG (Fluorodeoxyglucose), IV. Time of imaging post radiopharmaceutical administration: 46 minutes Injection site: RIGHT AC COMPARISON: PT PET WB melanoma INITIAL [id number] 09/15/2024 11:21 AM FINDINGS: Brain: No abnormal uptake. Pharynx: No abnormal uptake. Larynx: Bilateral intense symmetric uptake represents benign finding. Lungs, pleura and trachea: No abnormal uptake. No lung nodules or masses. Moderate to severe centrilobular emphysema in the upper lobes more prominent on the right side. No pleural effusion. Heart: No abnormal uptake. There is no cardiomegaly. Coronary artery calcification is present. With pericardial Mediastinal space: No abnormal uptake. Liver: No abnormal uptake. Gallbladder and biliary ducts: Unremarkable. Pancreas: Normal distribution of radiotracer. Spleen: No abnormal uptake. No splenomegaly. Adrenal glands: No abnormal uptake. No nodules. Kidneys and ureters: Normal physiologic uptake. No hydronephrosis. Stomach and bowel: Increased uptake in the small bowel and in the right colon with no corresponding CT abnormality is benign. Mild diverticulosis of the sigmoid colon. Vasculature: No abnormal uptake. No aortic aneurysm. Lymph nodes: No abnormal uptake. Skeleton: New FDG avid findings with no corresponding lytic or sclerotic lesions on CT suspicious for malignancy (1.8 cm long focus of increased uptake of 9 SUV in the left scapula, tiny focus measuring 2.5 SUV in the distal end of the left 11th rib, elongated area measuring 15.1 SUV along the inferior endplate of L5 vertebral body). New synovial uptake in the left greater toe centered at the metatarsophalangeal joint is compatible with benign finding. Soft tissues: Persistent benign uptake in the right infraspinatus muscle. New benign muscular uptake in the left middle finger. Stable small fat containing bilateral inguinal hernias. METRICS: Mediastinal blood pool maximal uptake is 3.4 SUV. Liver maximal uptake is 4.4 SUV. PET/PET WB melanoma SUBSEQ [id number] IMPRESSION: In comparison with recent prior exam on 09/15/2024 there are new FDG avid findings in the bones with no corresponding CT abnormality concerning for malignancy. New articular uptake in the left great toe is benign.
== END 2024-10-19 23:59 | disposition home or self-care (01) ==
LOC: ONCMED 10-16 10:41
PROVIDERS: PCP Family Medicine; Visit Provider Internal Medicine
DX: Z53.9 Procedure and treatment not carried out, unspecified reason (principal); C82.61 Cutaneous follicle center lymphoma, lymph nodes of head, face, and neck
CPT/HCPCS: 77290; 77321; 77331; 77334; 77336; 77412; 78816; 99024; 99205; 99213; A9552

== ENCOUNTER → 2024-10-16 10:24 | Outpatient (BNVA) | payer OTHER, SELFPAY | PROVIDERS: PCP Family Medicine; Visit Provider Dermatology | DX: C85.80 Other specified types of non-Hodgkin lymphoma, unspecified site (principal); L82.1 Other seborrheic keratosis; L72.0 Epidermal cyst; Z08 Encounter for follow-up examination after completed treatment for malignant neoplasm; Z85.828 Personal history of other malignant neoplasm of skin; L57.0 Actinic keratosis | CPT/HCPCS: 17000; 99214 ==

== ENCOUNTER → 2024-12-20 13:19 | Outpatient (BNVA) | payer OTHER, SELFPAY | PROVIDERS: PCP Family Medicine; Visit Provider Specialist | DX: M75.111 Incomplete rotator cuff tear or rupture of right shoulder, not specified as traumatic (principal); M75.81 Other shoulder lesions, right shoulder | CPT/HCPCS: 20610; J1100; J2795; J3301; J9999 ==

== ENCOUNTER 2025-01-03 11:29 | Oncology outpatient (recurring) (ONCR) | payer OTHER, SELFPAY ==
[2025-01-03 12:16] LABS: Hematocrit 46.5 % (37-53); Hemoglobin 15.90 g/dL (11.27-16.99); Mean Corpuscular HGB Conc 34.2 g/dL (30-55); Mean Corpuscular Hemoglobin 32.0 pg (27-33); Mean Corpuscular Volume 93.6 fl (82-101); Nucleated Red Blood Cells % 0 %; Platelet Count 223 10^3/cmm (157-399); Red Blood Count 4.97 10^6/uL (3.85-5.65); White Blood Count 8.77 10^3/uL (3.29-11.43)
[2025-01-03 12:34] LABS: Alanine Aminotransferase 14 U/L (0-41); Albumin Level 4.5 g/dL (3.5-5.2); Alkaline Phosphatase 102 U/L (40-130); Anion Gap 16.1 (5-19); Aspartate Amino Transferase 18 U/L (0-40); Blood Urea Nitrogen 12 mg/dL (8-23); Calcium 9.8 mg/dL (8.5-10.5); Carbon Dioxide 25 mmol/L (22-29); Chloride 99 mmol/L (98-107); Creatinine Clr Calc Pharmacy 75.9843; Globulin 3.8 g/dL (1.3-4.6); Glucose 100 mg/dL (65-115); Osmolality Calculated 282 mOsm/kg (285-295); Potassium 4.1 mmol/L (3.5-5.1); Sodium 136 mmol/L (136-145); Total Protein 8.3 g/dL (6.6-8.7)
[2025-01-05 14:50] LABS: KAPPA LIGHT CHAIN, FREE, SERUM 52.0 mg/L (3.3-19.4); KAPPA/LAMBDA LIGHT CHAINS FREE 1.64 (0.26-1.65); LAMBDA LIGHT CHAIN, FREE, SERU 31.7 mg/L (5.7-26.3)
== END 2025-01-19 23:59 | disposition home or self-care (01) ==
LOC: ONCMED 11:30
PROVIDERS: PCP Family Medicine; Visit Provider Internal Medicine
DX: Z08 Encounter for follow-up examination after completed treatment for malignant neoplasm (principal); Z85.72 Personal history of non-Hodgkin lymphomas; Z92.3 Personal history of irradiation
CPT/HCPCS: 36415; 80053; 82232; 82784; 83615; 83883; 85025; 86334; 99214

== ENCOUNTER → 2025-03-21 10:10 | Outpatient (BNVA) | payer OTHER, SELFPAY | PROVIDERS: PCP Family Medicine; Visit Provider Nurse Practitioner Family | DX: C85.80 Other specified types of non-Hodgkin lymphoma, unspecified site (principal); Z85.828 Personal history of other malignant neoplasm of skin; L57.0 Actinic keratosis; L82.1 Other seborrheic keratosis; L57.8 Other skin changes due to chronic exposure to nonionizing radiation; L81.4 Other melanin hyperpigmentation | CPT/HCPCS: 17004; 99214 ==